=== PATIENT | female | born 1955 | race Caucasian/White ===

== ENCOUNTER → 2016-08-12 | Outpatient (CLI) | payer BC ==
[~2016-08-12] MED LIST: ALBUTEROL17 GM INH; B COMPLEX1 TAB PO; FLEXERIL10 MG PO; GLIPIZIDE10 MG PO; LISINOPRIL2.5 MG PO; METFORMIN PO; MULTIPLE VITAMI1 T11 PO; PROTONIX PO; TRIAMTERENE-HC1 EAC1; TRIAMTERENE-HCT1 TA8 PO; VOLTAREN75 MG PO
--- NOTE | ~2016-08-12 | MY11 ---
[facility] A Service of [facility] RADIOLOGY TEXT RESULTS PATIENT: AMANDA LAI LOCATION: [facility] : 59 UNIT #: [id number] AGE: [address]: Angelica Brown MD SEX: F ORDER DR: [id number] [facility] [address] [place], [place] [address] [id number] O MR#: [id number] Acc #: [id number] NAME: AMANDA LAI : 1955 SEX: F STUDY DATE/TIME: 08/12/2016 7:33 UNIT: [facility] ROOM: STUDY DESCRIPTION: MY Mammogram Screening Dig Omid Attending Physician: Angelica Brown M.D. Referring Physician: Angelica Brown M.D. Ordering Physician: Angelica Brown M.D. Primary Care Physician: Angelica Brown M.D. MEDICAL IMAGING REPORT This report is preliminary unless electronic signature is present EXAM Digital screening mammogram 08/12/2016 HISTORY 61-year-old woman no risk elevation. Annual screen. COMPARISON Mammograms date to 08/17/2009 with most recent 08/09/2015. FINDINGS Digital imaging of each breast was completed utilizing a two-view examination of each breast in craniocaudal and mediolateral-oblique projections. Review and interpretation of digital mammograms include a second review in conjunction with FDA-approved CAD device. There is a normal parenchymal presentation bilaterally consistent with the patient's age. There are no breast masses imaged and no parenchymal asymmetry is visualized. There are no suspicious microcalcifications and I see no focal architectural disturbance. IMPRESSION Negative screening digital mammogram. One-year followup recommended. Patients over the age of 40 are entered into a reminder system with target due date for the next mammogram. A result letter will also be sent to the patient. BIRADS: 1 Negative Dictated by... Ron Leon M.D. [facility] A Service [facility] RADIOLOGY TEXT RESULTS PATIENT: AMANDA LAI LOCATION: [facility] : 59 UNIT #: [id number] AGE: [address]: Angelica Brown MD SEX: F ORDER DR: THIS IS AN ELECTRONICALLY VERIFIED REPORT Ron Leon M.D. at 08/12/2016 11:11 AM Lianet TD: 08/12/2016 10:32 JOB #: [id number] MEDICAL IMAGING REPORT Page 1 of 1 COPY
== END | disposition home or self-care (01) ==
LOC: CWCC 07:16
DX: Z12.31 Encounter for screening mammogram for malignant neoplasm of breast (principal)
CPT/HCPCS: G0202